=== PATIENT | female | born 1945 ===

== ENCOUNTER 2017-12-13 21:26 | Emergency (ER) | payer MEDICARE ==
[2017-12-13 21:41] VITALS: TEMP 98.4
[2017-12-13 22:18] LABS: BASO % 0.7 % (0.0-2.0); EOS # 0.1 K/uL (0.0-0.7); EOS % 1.5 % (0.0-4.0); HEMOGLOBIN 13.6 g/dL (11.0-16.0); LYMPH # 1.8 K/uL (1.0-4.3); LYMPH % 27.7 % (20.0-40.0); MEAN CELL VOLUME 79.9 fL (81.0-99.0); MEAN CORPUSCULAR HEMOGLOBIN 26.3 pg (27.0-31.0); MEAN CORPUSCULAR HGB CONC 32.9 g/dL (33.0-37.0); MONO # 0.4 K/uL (0.0-0.8); MONO % 5.8 % (0.0-10.0); NEUT # 4.1 K/uL (1.8-7.0); NEUT % 64.3 % (50.0-75.0); RBC 5.17 Mil/uL (3.80-5.20); RED CELL DISTRIBUTION WIDTH 14.1 % (11.5-14.5); URINE BILIRUBIN NEGATIVE (NEGATIVE); URINE CLARITY Clear (Clear); URINE COLOR Colorless (YELLOW); URINE GLUCOSE (UA) NORMAL (Normal); URINE LEUKOCYTE ESTERASE NEG Leu/uL (Negative); URINE PROTEIN NEGATIVE (NEGATIVE); URINE UROBILINOGEN NORMAL mg/dL (0.2-1.0); WHITE BLOOD COUNT 6.4 K/uL (4.8-10.8)
[2017-12-13 22:22] LABS: URINE BACTERIA RARE (<OCC); URINE BLOOD NEGATIVE (NEGATIVE)
[2017-12-13 22:24] LABS: PROTHROMBIN TIME 10.8 SECONDS (9.7-12.2)
--- NOTE | 2017-12-13 22:24 | C.PDOC ---
History Of Present Illness 72 y/o female with a PMHx of hypertension and hyperlipidemia, presents to the emergency department with high blood pressure. States blood pressure was measured at 200 systolic at home, prompting her to come in for further evaluation. Patient reports feeling "mild dizzy". Otherwise denies any headache , chest pain, SOB, or other complaints., thayer Time Seen by Provider: 12/13/17 21:47 Chief Complaint (Nursing): High Blood Pressure History Per: Patient History/Exam Limitations: no limitations Current Symptoms Are (Timing): Still Present Associated Symptoms: Dizziness Past Medical History Reviewed: Historical Data, Nursing Documentation, Vital Signs Vital Signs: Last Vital Signs Temp 98.4 F 12/13/17 21:38 Pulse 79 12/14/17 00:08 Resp 18 12/14/17 00:08 BP 185/75 H 12/14/17 00:08 Pulse Ox 100 12/14/17 00:08 - Medical History PMH: HTN, Hyperlipidemia Other Surgeries: Hysterectomy Family History: States: No Known Family Hx - Social History Hx Tobacco Use: No Hx Alcohol Use: No Hx Substance Use: No - Immunization History Hx Tetanus Toxoid Vaccination: No Hx Influenza Vaccination: Yes Hx Pneumococcal Vaccination: No Review Of Systems Except As Marked, All Systems Reviewed And Found Negative. Constitutional: Positive for: Other (High BP). Negative for: Weakness Eyes: Negative for: Vision Change Cardiovascular: Negative for: Chest Pain, Palpitations Respiratory: Negative for: Shortness of Breath Neurological: Positive for: Dizziness. Negative for: Headache Physical Exam - Physical Exam Appears: No Acute Distress, Other (Anxious appearing) Skin: Normal Color, Warm, Dry Head: Atraumatic, Normacephalic Eye(s): bilateral: Normal Inspection, PERRL, EOMI Nose: Normal Oral Mucosa: Moist Neck: Normal ROM, Supple Chest: Symmetrical Cardiovascular: Rhythm Regular, No Murmur Respiratory: Normal Breath Sounds, No Accessory Muscle Use Gastrointestinal/Abdominal: Soft, No Tenderness, No Distention Extremity: Bilateral: Atraumatic, Normal Color And Temperature, Normal ROM Neurological/Psych: Oriented x3, Normal Speech, Normal Cranial Nerves, Normal Motor, Normal Sensation Gait: Steady ED Course And Treatment - Laboratory Results Result Diagrams: 12/13/17 22:13 12/13/17 22:13 ECG: Interpreted By Me, Viewed By Me ECG Rhythm: Sinus Rhythm (at 67 bpm, no ST or T wave changes) ECG Interpretation: Normal O2 Sat by Pulse Oximetry: 99 (RA) Pulse Ox Interpretation: Normal Medical Decision Making Medical Decision Making: Impression: 72 year old with high blood pressure r/o htn emregncy vs urgency. pt mildly anxious appearin neuro intact On arrival, blood pressure is 205/75. Time: 21:50 Initial Plan: EKG CMP Troponin I CBC PTT Prothrombin time Urinalysis labs unremakrable. b/p improved in er. advise outpt fu neuo intact Disposition - Disposition Referrals: Petar Mosley MD [Primary Care Provider] - Disposition: HOME/ ROUTINE Disposition Time: 12:00 Condition: STABLE Additional Instructions: please follow up with your doctor. return to er with worsening symptoms or concerns. Instructions: High Blood Pressure (DC), Dizziness, Nonvertigo, (DC) Forms: [facility] (Amharic) - Clinical Impression Clinical Impression: High blood pressure - Scribe Statement The provider has reviewed the documentation as recorded by the Dino Cannon Provider Attestation: All medical record entries made by the Dino were at my direction and personally dictated by me. I have reviewed the chart and agree that the record accurately reflects my personal performance of the history, physical exam, medical decision making, and the department course for this patient. I have also personally directed, reviewed, and agree with the discharge instructions and disposition.
[2017-12-13 22:27] LABS: CALCIUM 9.7 mg/dl (8.6-10.4); GFR AFRICAN-AMERICAN > 60; GFR NON-AFRICAN AMERICAN > 60
[2017-12-13 22:30] LABS: ALB/GLOB RATIO 1.1 (1.0-2.1); ALBUMIN 4.7 g/dL (3.5-5.0); ALT/SGPT 23 U/L (9-52); AST/SGOT 47 U/L (14-36); BLOOD UREA NITROGEN 11 mg/dL (7-17)
[2017-12-14 00:08] VITALS: BP 185/75; PULSE 79; RESP 18
[2017-12-14 01:14] VITALS: O2SAT 99
--- NOTE | 2017-12-14 12:40 | CARD ---
APPROVED REPORT EKG Measurement Heart [id number] <Conclusion> Normal sinus rhythm Normal ECG
== END 2017-12-14 00:08 | disposition home or self-care (01) ==
LOC: SUPCPDRO 21:26 → C.ER 21:26
DX: I10 Essential (primary) hypertension (principal); E78.5 Hyperlipidemia, unspecified